=== PATIENT | male | born 1970 | race Two or more races ===

== ENCOUNTER 2025-03-30 01:14 | Emergency (ER) | payer MEDICAID, SELFPAY ==
[2025-03-30 01:34] VITALS: BP 175/110; PULSE 72; RESP 20; TEMP 36.7; O2SAT 99
--- NOTE | 2025-03-30 01:45 | EDNOTE_ITS ---
ED SOB =RME/HPI General Chief Complaint: Shortness of Breath/Dyspnea Stated Complaint: DIFFICULTY BREATHING,NAUSEA Time Seen by Provider: 03/30/25 01:49 Arrival date/time: 03/30/25 01:14 RME / HPI RME / HPI Narrative: This section includes all my notes and documentations, including HPI, PE, and ED course. Se Valdez MD HPI: 54 y/o male with Hx of smoking presents with couple of days of shortness of breath and slight cough. Denies chest pain. No fever. No productive cough. No other complaints. ROS: All negative except as documented in HPI. Physical Exam: General: Alert and oriented. No acute distress when remaining still. High BP noted. Eyes: Conjunctivae and lids clear. ENT: No nasal congestion. Neck: Supple. Heart: RRR. Lungs: No respiratory distress. Mildly decreased air movement with wheezing. Abdomen: Soft and nontender. Normal bowel sounds. No distension. No rebound or guarding. Back: No CVA tenderness. Skin: Warm and dry. Neuro: Alert and oriented X 3. I reviewed all diagnostic test results: My interpretation of the EKG is: Sinus rhythm (58 bpm) with early repolarization and nonspecific ST-T changes. Blood tests are unremarkable, including negative D-dimer and negative troponin X 2. Covid/Influenza: Negative. At this point, diagnoses include: Bronchospasm. Treatment here included: Catapres, Albuterol/Ipratroprium Duoneb, SoluMedrol. Significant improvement noted. Recommended more outpatient care. Based on my best medical judgment, made decision no further evaluation or treatment indicated at this time. Patient understands and agrees to the discharge instructions customized and printed, see below. Discharge instructions from Dr. Valdez: --After evaluation, you have mild asthma. --No physical exertion for 3 days to help rest the lungs. ?No smoking or exposure to smoking or pets or dust or cold or humidity. --Prednisone to help decrease the swelling in the airways. --Albuterol 2 puffs every 4-6 hours for today and tomorrow to help keep the airways open. Then as needed for cough or shortness of breath. --See a private doctor on 03/31/2025 for recheck. Ask to review all test results and official radiology reports, to make sure you receive all necessary follow-ups and monitoring. Ask for official testing for underlying asthma. To make sure there is no serious underlying heart condition, ask to help you get more tests for your heart that cannot be done here in the ER. Such as Holter Monitor (cardiac monitoring at home from a day to even a month), heart stress test (on treadmill or with medication), echocardiogram (imaging of your heart structures), heart catherization (checking for blockages in your heart arteries), and a referral to see a [employer]. --Seek immediate medical care with worsening or with any concerns. Se Valdez MD Related Data Previous Rx's ?Medication ?Instructions ?Recorded albuterol sulfate 90 mcg/actuation 2 puff inhalation Q 6H PRN 03/30/25 aerosol inhaler shortness of breath or wheez ing #8.5 grams prednisone 20 mg tablet 20 mg PO BID 2 days #4 tabs 03/30/25 Allergies Allergy/AdvReac Type Severity Reaction Status Date / Time No Known Allergies Allergy Verified 03/30/25 01:18 Review of Systems Review of Systems Systems Reviewed: All systems reviewed, normal except as documented Past Medical History Social History SMOKING STATUS: Current every day smoker ED Exam Narrative Physical exam: Refer to HPI above Course Course Course Narrative: CXR is ordered for determining the etiology of shortness of breath. Quality Measures none Orders Category Date Time Status Bedside COVID-19 Antigen Test NOW Care 03/30/25 01:49 Active Bedside Influenza A&B Antigen Test NOW Care 03/30/25 01:[address] Screening NOW Care 03/30/25 01:50 Active EKG (ED ONLY) *Do not use* NOW Care 03/30/25 01:50 Completed Saline [Insert IV] NOW Care 03/30/25 01:[address] angio chest Stat Exams 03/30/25 01:50 Stop Req EKG (ED Only) Stat Exams 03/30/25 01:50 Draft BNP [B-Type Natriuretic Peptide] Stat Lab 03/30/25 02:45 Completed Bilirubin,Direct Stat Lab 03/30/25 02:45 Completed CBC Stat Lab 03/30/25 02:45 Completed CMP [Comprehensive Metabolic Panel] Stat Lab 03/30/25 02:45 Completed D-Dimer Stat Lab 03/30/25 02:45 Completed Free T4 (Free Thyroxine) Stat Lab 03/30/25 02:45 Completed Magnesium Stat Lab 03/30/25 02:45 Completed TSH [Thyroid Stimulating Hormone] Stat Lab 03/30/25 02:45 Completed Troponin I Stat Lab 03/30/25 02:45 Completed Troponin I Stat Lab 03/30/25 03:55 Completed Albuterol/Ipratr Rt Natasha [Duoneb Rt Natasha] Med 03/30/25 01:49 Discontinued 3 ml INH X1 ONE MethylPREDNISolone.* [SoluMEDROL Inj] Med 03/30/25 01:49 Discontinued 125 mg IVP X1 ONE cloNIDine HCL [Catapres] Med 03/30/25 01:49 Discontinued 0.3 mg PO X1 ONE Vital Signs Vital signs: Vital Signs Temperature 98.1 F 03/30/25 01:34 Pulse Rate 72 03/30/25 01:34 Respiratory Rate 20 03/30/25 01:34 Blood Pressure 175/110 H 03/30/25 01:34 Pulse Oximetry (%) 99 03/30/25 01:34 Oxygen Delivery Method Room Air 03/30/25 01:34 Shortness of Breath / Dyspnea MDM Narrative MDM Narrative:: Scribe Attestation: Layla Soto, am scribing for and in the presence of Dr. Valdez. Provider Notation: Although this document has been carefully reviewed, there may still be some phonetic and other typographical errors.? These errors are purely grammatical due to imperfections in the software program and should not be construed in any way to? compromise the substance of the patient's medical care during this visit. 54 y/o male with Hx of smoking presents with couple of days of shortness of breath and slight cough. Denies chest pain. No other complaints. Patient data External records reviewed:: [facility] previous records (Reviewed prior ED records from 11/16/23. Patient was seen for Gastritis.) Clinical information provided by:: patient Social determinants that could affect healthcare access:: none Patient has the following chronic illnesses:: None reported How is presenting disease/condition affected by chronic disease/condition?: no chronic disease Evaluation data The following diagnostics were reviewed and interpreted by me:: lab results, radiology exam(s) and EKG tracing(s) (My interpretation of the EKG is: Sinus rhythm (58 bpm) with early repolarization and nonspecific ST-T changes. Se Valdez MD) Lab and/or radiology exams considered but not ordered:: None Interpretation Summary: I reviewed all diagnostic test results: My interpretation of the EKG is: Sinus rhythm (58 bpm) with early repolarization and nonspecific ST-T changes. Blood tests are unremarkable, including negative D-dimer and negative troponin X 2. Covid/Influenza: Negative. Medications / Prescriptions Medications or Prescriptions considered but not ordered:: None Medication administrations:: Medication Administration History Discontinued Medications Albuterol/Ipratropium (Albuterol/Ipratropium (Duoneb) Rt Natasha 3 Ml Nebu) 3 ml INH X1 ONE Stop: 03/30/25 01:50 Last Admin: 03/30/25 02:15 Dose: 3 ml Documented By: DM Clonidine (Clonidine Hcl 0.1 Mg Tablet) 0.3 mg PO X1 ONE Stop: 03/30/25 01:50 Last Admin: 03/30/25 02:06 Dose: 0.3 mg Documented By: BD Methylprednisolone Sodium Succinate (Methylprednisolone Sod Succ 62.5 Mg/Ml 2ml Vial) 125 mg IVP X1 ONE Stop: 03/30/25 01:50 Last Admin: 03/30/25 02:26 Dose: 125 mg Documented By: BD Catapres, Albuterol/Ipratroprium Duoneb, SoluMedrol. Consultations Consultation(s) initiated? (list below): No Diagnosis Shortness of Breath Differential Diagnosis: acute exacerbation of chronic obs tructive airways disease, congestive heart failure, community acquired pneumonia, pulmonary embolism and other (Asthma, URI, LRI, Bronchitis) Most likely diagnosis given after review of the tests above:: Bronchospasm Admission Indicated Admission indicated?: not indicated Explain why admission is indicated or not indicated:: With significant improvement, there was no indication for admission. Admission Request Was there a request for admission?: No Disposition Plan Disposition Plan: Discharge Discharge Attestation Discharge Attestation: The patient and all family members were given an opportunity to ask questions and understood the discharge instructions. Discharge instructions specifically effects, indications for sooner follow up or return to the emergency department, and the expected course of current diagnosis. Patient condition: Stable Discharge Plan Plan Patient Disposition: HOME (Self Care) Prescriptions/Referrals Prescriptions/Med Rec: New prednisone 20 mg tablet 20 mg PO BID 2 Days Qty: 4 0RF Taper: Prednisone Taper 20 mg DAILY for 2 Days and 0 Hour 10 mg DAILY for 2 Days and 0 Hour 5 mg DAILY for 7 Days and 0 Hour albuterol sulfate 90 mcg/actuation HFA aerosol inhaler 2 puff inhalation Q6H PRN (Reason: shortness of breath or wheezing) Qty: 8.5 0RF Referrals: No Primary/Family,Physician [Primary Care Provider] - In 1 week Problem List Clinical Impression: Bronchospasm Patient/Caregiver Discharge Instructions Discharge Activity: activity as tolerated Education Materials: ED Asthma, Acute (Adult) Additional Instructions: Discharge instructions from Dr. Valdez: --After evaluation, you have mild asthma. --No physical exertion for 3 days to help rest the lungs. ?No smoking or exposure to smoking or pets or dust or cold or humidity. --Prednisone to help decrease the swelling in the airways. --Albuterol 2 puffs every 4-6 hours for today and tomorrow to help keep the airways open. Then as needed for cough or shortness of breath. --See a private doctor on 03/31/2025 for recheck. Ask to review all test results and official radiology reports, to make sure you receive all necessary follow-ups and monitoring. Ask for official testing for underlying asthma. To make sure there is no serious underlying heart condition, ask to help you get more tests for your heart that cannot be done here in the ER. Such as Holter Monitor (cardiac monitoring at home from a day to even a month), heart stress test (on treadmill or with medication), echocardiogram (imaging of your heart structures), heart catherization (checking for blockages in your heart arteries), and a referral to see a [employer]r. --Seek immediate medical care with worsening or with any concerns. Instrucciones de teir del Dr. Valdez: --Despu?s de la evaluaci?n, presenta asma leve. --No realice esfuerzo f?sico nilesh 3 d?as para ayudar a los pulmones a descansar. --No fume ni se exponga al humo, a mascotas, al polvo, al fr?o ni a la humedad. --Prednisona para ayudar a disminuir la inflamaci?n de las v?as respiratorias. --Albuterol: 2 inhalaciones cada 4-6 horas hoy y ma?tristin para ayudar a mantener las v?as respiratorias abiertas. Posteriormente, seg?n sea necesario para la tos o la dificultad para respirar. --Consulte con un m?dico particular el 06/28/2025 para sohail nueva revisi?n. Solicite la revisi?n de todos los resultados de las pruebas y los informes radiol?gicos oficiales para asegurarse de que reciba todos los controles y monitoreos necesarios. Solicite pruebas oficiales para detectar asma subyacente. Para asegurarse de que no haya sohail afecci?n card?len subyacente grave, solicite ayuda para realizar m?s pruebas card?acas que no se pueden realizar en urgencias. [place] un monitor Holter (monitoreo card?aco en casa desde un d?a hasta un mes), sohail prueba de esfuerzo card?aco (en cinta o con medicaci?n), un ecocardiograma (im?genes de las estructuras del coraz?n), un cateterismo card?aco (para detectar obstrucciones en las arterias del coraz?n) y sohail derivaci?n a un cardi?logo. --Busque atenci?n m?dica inmediata si presenta empeoramiento o cualquier inquietud. Print Language: Yoruba Stand Alone Forms: [employer] Award Info., Patient Portal Info Letter
--- NOTE | 2025-03-30 01:50 | EKG_ITS ---
[facility] Test Date: 2025-03-30 Pat Name: FRANKLIN NIELSEN Department: Room: - Gender: Male Medical Claims Representative: : 1970 Requested By: Se Cramer Order Number: [id number] Reading MD: Se Cramer Measurements Intervals [place] Rate: 58 P: 0 NM: 128 QRS: 1 QRSD: 97 T: 20 QT: 408 QTc: 401 Interpretive Statements SINUS BRADYCARDIA ST ELEVATION, PROBABLY EARLY REPOLARIZATION [ST ELEVATION WITH NORMALLY INFLECTED T-WAVE] No previous ECG available for comparison /[id number]/[email or web address]/[id number].pdf
[2025-03-30 02:06] VITALS: BP 173/106; PULSE 65
[2025-03-30] MEDS: cloNIDine HCL 0.1 MG TABLET 0.3 MG PO (02:06)
[2025-03-30 02:10] VITALS: BMI 24.2
[2025-03-30] MEDS: ALBUTEROL/IPRATROPIUM (Duoneb) RT SOL 3 ML NEBU INH (02:15)
[2025-03-30 02:18] VITALS: PULSE 64; RESP 20; O2SAT 100
[2025-03-30] MEDS: MethylPREDNISolone SOD SUCC 62.5 MG/ML 2ML VIAL 125 MG IVP (02:26)
[2025-03-30 02:32] VITALS: BP 140/93; PULSE 60; RESP 16; O2SAT 98
[2025-03-30 02:56] LABS: Basophils % (Auto) 1 % (0-2.5); Eosinophils # (Auto) 0.1 Thou/mm3 (0.0-0.5); Eosinophils % (Auto) 1 % (0-10); Hematocrit 42.8 % (41.0-53.0); Hemoglobin 14.7 g/dL (13.5-16.0); Immature Granulocytes % (Auto) 0 % (0-0); Immature Granulocytes Auto 0.02 Thou/mm3 (0.00-0.00); Lymphocytes # (Auto) 2.3 Thou/mm3 (1.0-4.8); Lymphocytes % (Auto) 37 % (10-50); Mean Corpuscular HGB Conc 34.3 g/dl (31.0-37.0); Mean Corpuscular Hemoglobin 31.1 pg (25.0-35.0); Mean Corpuscular Volume 91 fL (80-100); Monocytes # (Auto) 0.7 Thou/mm3 (0.0-0.8); Monocytes % (Auto) 11 % (0-12); Neutrophils # (Auto) 3.2 Thou/mm3 (1.8-7.7); Neutrophils % (Auto) 50 % (37-80); Nucleated Red Blood Cell % 0 /100 WBC (0); Platelet Count 282 Thou/mm3 (140-440); RDW Standard Deviation 44.4 fL (35.1-43.9); Red Blood Count 4.73 Miln/mm3 (4.50-5.90); White Blood Count 6.4 Thou/mm3 (3.8-10.6)
[2025-03-30 03:13] LABS: D-Dimer < 250 ng/mL (<600)
[2025-03-30 03:15] LABS: B-Type Natriuretic Peptide < 20 pg/mL (0-100)
[2025-03-30 03:34] LABS: Alanine Aminotransferase 36 U/L (10-49); Albumin, Serum 4.8 gm/dL (3.5-5.0); Albumin/Globulin Ratio 1.8 (1.2-2.2); Alkaline Phosphatase 98 U/L (46-116); Anion Gap 7 (7-16); BUN/Creatinine Ratio 14 Ratio (12-20); Bilirubin,Direct < 0.1 mg/dL (0.0-0.3); Bilirubin,Total 0.4 mg/dL (0.3-1.2); Blood Urea Nitrogen 13 mg/dL (9-23); Calcium 9.3 mg/dL (8.3-10.6); Calcium (Corrected) 9.3 mg/dL (8.5-10.1); Carbon Dioxide 27.7 mMol/L (20.0-31.0); Chloride 104 mMol/L (98-107); Creatinine (Component) 0.9 mg/dL (0.6-1.3); Estimated Creatinine Clearance 86.6 mL/min (>60); Free T4 (Free Thyroxine) 1.47 ng/dL (0.89-1.76); Globulin 2.7 gm/dL (2.3-3.5); Glucose 107 mg/dL (74-106); Magnesium 2.2 mg/dL (1.6-2.6); Osmolality,Calculated 277 (275-295); Potassium 3.7 mMol/L (3.4-5.1); Sodium 139 mMol/L (136-145); Thyroid Stimulating Hormone 3.27 uIU/mL (0.55-4.78); Total Protein 7.5 gm/dL (5.7-8.2); Troponin I < 0.020 ng/mL (0.0-0.045); eGFR > 60 See Note
[2025-03-30 04:00] VITALS: BP 122/73; PULSE 60; RESP 16; TEMP 36.9; O2SAT 99
[2025-03-30 04:16] LABS: Troponin I < 0.020 ng/mL (0.0-0.045)
--- NOTE | 2025-03-30 04:34 | PC.NURSE ---
PER DR. GIOVANNY CARLISLE CT
== END 2025-03-30 04:51 | disposition home or self-care (01) ==
PROVIDERS: Emergency Provider Emergency Medicine
DX: J98.01 Acute bronchospasm (principal); R00.1 Bradycardia, unspecified
CPT/HCPCS: 36415; 80053; 82248; 83735; 83880; 84439; 84443; 84484; 85025; 85379; 87400; 87811; 93005; 94640; 96374; 99285; A9270; J2919